=== PATIENT | female | born 2000 | race Caucasian/White ===

== ENCOUNTER 2023-12-20 13:36 | Emergency (ER) | payer OTHER ==
--- NOTE | 2023-12-20 17:11 | ER ---
Nurse's Notes [facility] Name: Alma Rosa Smith Age: 23 yrs Sex: Female : 2000 Arrival Date: 12/20/2023 Time: 13:36 Bed IW7 Private MD: Diagnosis: Candidiasis, unspecified Presentation: 12/19 13:59 Chief complaint: Patient states: Rash under breasts since yesterday. Coronavirus [facility] screen: Coronavirus screen: Vaccine status: Patient reports being unvaccinated. Ebola Screen: Patient denies travel to an Ebola-affected area in the 21 days before illness onset. Initial Sepsis Screen: Does the patient meet any 2 criteria? No. Patient's initial sepsis screen is negative. Does the patient have a suspected source of infection? No. Patient's initial sepsis screen is negative. Risk Assessment: Do you want to hurt yourself or someone else? Patient reports no desire to harm self or others. Onset of symptoms was December 19, 2023. 13:59 Method Of Arrival: Ambulatory [facility] 13:59 Acuity: FERMIN [address] [facility] Triage Assessment: 14:04 General: Appears in no apparent distress. comfortable, Behavior is calm, cooperative, nj1 appropriate for age. Pain: Denies pain. Neuro: Level of Consciousness is awake, alert, obeys commands, Oriented to person, place, time, situation. Cardiovascular: Patient's skin is warm and dry. Respiratory: Airway is patent Respiratory effort is even, unlabored. Historical: - Allergies: 14:03 No Known Allergies; nj1 - PMHx: 14:03 None; nj1 - PSHx: 14:03 Tonsillectomy; nj1 - Immunization history:: Client reports having NOT received the Covid vaccine. - Infectious Disease History:: Denies. - Social history:: Smoking status: Patient denies any tobacco usage or history of. Screenin:05 [facility] ED Fall Risk Assessment (Adult) History of falling in the last 3 months, nj including since admission No falls in past 3 months (0 pts) Confusion or Disorientation No (0 pts) Intoxicated or Sedated No (0 pts) Impaired Gait No (0 pts) Mobility Assist Device Used No (0 pt) Altered Elimination No (0 pt) Score/Fall Risk Level 0 - 2 = Low Risk Oriented to surroundings, Maintained a safe environment, Hourly rounding (assess needs \T\ fall precautionary measures) done. Abuse screen: Denies threats or abuse. Denies injuries from another. Nutritional screening: No deficits noted. Tuberculosis screening: No symptoms or risk factors identified. Vital Signs: 13:59 BP 159 / 100; Pulse 82; Resp 18; Temp 97.1(TE); Pulse Ox 98% ; Weight 124.74 kg; Height nj 5 ft. 3 in. ; 13:59 Body Mass Index 48.71 (124.74 kg, 160.02 cm) [facility] ED Course: 13:41 Patient arrived in ED. im 13:41 [facility] Cro[facility] kb 13:41 Kishore Dueñas MD is Attending Physician. kb 14:02 Triage completed. nj 14:04 Arm band placed on right wrist. nj 14:06 Patient has correct armband on for positive identification. Provided Education on: [facility] discharge instructions. 14:06 No provider procedures requiring assistance completed. Patient did not have IV access nj during this emergency room visit. Administered Medications: No medications were administered Medication: 14:07 VIS not applicable for this client. [facility] Outcome: 14:04 Discharge ordered by . kb 14:08 Discharged to home ambulatory, [facility] 14:08 Condition: stable 14:08 Discharge instructions given to patient, Instructed on discharge instructions, follow up and referral plans. medication usage, wound care, Demonstrated understanding of instructions, follow-up care, medications, wound care, Prescriptions given X 1, 14:08 Patient left the ED. [facility] Signatures: Lida Crooks FNP-C FNP-Ckb Jaco, Norma, RN RN [facility] Perri Anderson Corrections: (The following items were deleted from the chart) 14:04 13:59 Chief complaint: Patient states: Rash under breasts. [place] [id number] 14:04 13:59 Coronavirus screen: [place] [id number] 14:04 13:59 Initial Sepsis Screen: Does the patient meet any 2 criteria? No. Patient's [facility] initial sepsis screen is negative. Does the patient have a suspected source of infection? No. Patient's initial sepsis screen is negative. [facility]
--- NOTE | 2023-12-20 17:11 | EDPHYS ---
Physician Documentation [facility] Name: Alma Rosa Smith Age: 23 yrs Sex: Female : 2000 Arrival Date: 12/20/2023 Time: 13:36 Bed IW7 Private MD: ED Physician Kishore Dueñas HPI: 12/19 14:02 This 23 yrs old Female presents to ER via Unassigned with complaints of Rash. kb 14:02 Pt is a 23 year old female who presents for rash beneath bilateral breasts that started kb yesterday. States she has had this intermittently for the past few years. Reports itching. States the rash presents more often during the summer. . Historical: - Allergies: 14:03 No Known Allergies; nj1 - PMHx: 14:03 None; nj1 - PSHx: 14:03 Tonsillectomy; nj1 - Immunization history:: Client reports having NOT received the Covid vaccine. - Infectious Disease History:: Denies. - Social history:: Smoking status: Patient denies any tobacco usage or history of. ROS: 14:02 Constitutional: As per HPI kb Exam: 14:02 Constitutional: This is a well developed, well nourished patient who is awake, alert, kb and in no acute distress. Head/Face: Normocephalic, atraumatic. ENT: Moist Mucous membranes Cardiovascular: Regular rate Respiratory: Respirations even and unlabored. No increased work of breathing. Talking in full sentences Abdomen/GI: Soft, non-tender. No distention MS/ Extremity: Pulses equal, no cyanosis. Neurovascular intact. Full, normal range of motion. Neuro: Awake and alert, GCS 15, oriented to person, place, time, and situation. Moves all extremities. Normal gait. 14:02 Skin: rash a moderate rash is noted, consistent with candidiasis , Vital Signs: 13:59 BP 159 / 100; Pulse 82; Resp 18; Temp 97.1(TE); Pulse Ox 98% ; Weight 124.74 kg; Height nj1 5 ft. 3 in. ; 13:59 Body Mass Index 48.71 (124.74 kg, 160.02 cm) nj1 MDM: 13:41 Patient medically screened. kb 14:03 Differential diagnosis: allergic reaction, parasite infection, candidiasis, ezcema. kb Data reviewed: vital signs, nurses notes. Counseling: I had a detailed discussion with the patient and/or guardian regarding the historical points, exam findings, and any diagnostic results supporting the discharge/admit diagnosis, the need for outpatient follow up, a facilities specialist, to return to the emergency department if symptoms worsen or persist or if there are any questions or concerns that arise at home. Administered Medications: No medications were administered Disposition Summary: 12/20/23 14:04 Discharge Ordered Notes: Location: Home kb Condition: Stable kb Diagnosis - Candidiasis, unspecified kb Followup: kb - With: Emergency Department - When: As needed - Reason: Worsening of condition Followup: kb - With: Private Physician - When: 2 - 3 days - Reason: Recheck today's complaints, Continuance of care, Re-evaluation by your physician Discharge Instructions: - Discharge Summary Sheet kb - Skin Yeast Infection kb Forms: - Medication Reconciliation Form kb - Antibiotic Education kb - Prescription Opioid Use kb - Patient Portal Instructions kb - Leadership Thank You Letter kb Prescriptions: - Nystatin-Triamcinolone 100,000-0.1 unit/g-% Topical cream - apply 1 application TOPICAL route 2 times per day; 1 unit; Refills: 0, Product kb Selection Permitted Signatures: Lida Crooks, [employer]ARING [employer]ISHER-C [employer]ING [employer]ISHER-Yu Hallman, RN RN nj1
[2023-12-21 02:40] VITALS: BP 159/100; TEMP 97.1; O2SAT 98
== END 2023-12-20 14:08 | disposition home or self-care (01) ==
LOC: ER 13:36
DX: B37.9 Candidiasis, unspecified (principal)

== ENCOUNTER 2024-02-29 12:21 | Emergency (ER) | payer OTHER ==
[2024-02-29 13:13] LABS: Absolute Basophils 0.1 K/uL (0-0.5); Absolute Eosinophils 0.2 K/uL (0-0.5); Absolute Lymphocytes (CBC) 1.9 K/uL (0.7-4.9); Absolute Monocytes 0.5 K/uL (0.1-1.3); Absolute Neutrophil 8.8 K/uL (1.8-8.0); Basophils % 0.5 % (0-1.3); Eosinophils % 1.5 % (0-4.4); Hematocrit 41.8 % (36.0-45.0); Hemoglobin 13.4 g/dL (12.0-15.0); Lymphocytes % 16.8 % (15.3-44.8); MCH 27.4 pg (27.0-35.0); MCHC 32.2 g/dL (32.0-36.0); MCV 85.1 fL (80-100); Monocytes % 4.2 % (3.3-12.3); Platelets 407 thou/uL (152-406); RBC Red Blood Cell Count 4.91 M/uL (3.86-4.86); Red Cell Distribution Width 17.1 % (12.1-15.2)
[2024-02-29 13:29] LABS: Specific Gravity 1.023 (1.005-1.030); Urine Bacteria <20 /HPF (<20); Urine Bilirubin NEGATIVE (Negative); Urine Blood 3+ (Negative); Urine Clarity Extremely Turbid (Clear); Urine Color Light-Yellow (Yellow); Urine Culture Reflex Order NOT NEEDED; Urine Glucose NEGATIVE (Negative); Urine Ketones 1+ (Negative); Urine Microscopic Reflex YN ORDER UMIC; Urine Mucus Slight /HPF (None Seen); Urine Nitrite NEGATIVE (Negative); Urine Protein NEGATIVE (Negative); Urine Urobilinogen Normal (Normal); Urine WBC <5 /HPF (<5); Urine pH 5.5 (5.0-7.0)
[2024-02-29 13:39] LABS: Albumin 3.4 g/dL (3.4-5.0); Albumin/Globulin Ratio 0.7 (1.1-1.8); Anion Gap 9.2 mEq/L (5.0-15.0); Bilirubin Total 0.3 mg/dL (0.2-1.0); Globulin 4.6 g/dL (2.3-3.5); Potassium 3.2 mEq/L (3.5-5.1); Thyroid Stimulating Hormone 1.36 uIU/mL (0.358-3.740)
[2024-02-29] MEDS ORDERED: NA CHLORIDE 0.9% 1,000 ML ONE (13:52)
--- NOTE | 2024-02-29 14:14 | RAD REPORT ---
EXAMINATION: US BILATERAL LOWER EXTREMITY VENOUS DOPPLER CLINICAL INDICATION: PAIN TECHNIQUE: Complete bilateral duplex sonography of the BILATERAL lower extremity veins was performed. The examination included compression for vein patency, color Doppler imaging and flow augmentation in response to distal compression of the distal external iliac, common femoral, femoral, popliteal, t ibial, and great and small saphenous veins. COMPARISON: No prior exam. FINDINGS: Duplex sonography testing of the veins of the BILATERAL lower extremity was performed. Color flow poly ging shows all veins to be compressible with [id number] color filling. Pulsatile and phasic flow is present within all lower extremity deep and superficial veins examined. IMPRESSION: There is no deep vein or superficial vein thrombosis.
[2024-02-29] MEDS ORDERED: CEFTRIAXONE 1000 MG/VIAL ONE (14:39)
[2024-02-29] MEDS ORDERED: CEFDINIR 300 MG CAP PO ONE (14:39)
[2024-02-29] MEDS ORDERED: POTASSIUM 25 MEQ EFFERV TAB ONE (14:40)
--- NOTE | 2024-02-29 14:41 | ER ---
Nurse's Notes [facility] Name: Alma Rosa Smith Age: 23 yrs Sex: Female : 2000 Arrival Date: 02/29/2024 Time: 12:21 Bed 25 Private MD: Diagnosis: Palpitations;Less than 8 weeks gestation of ;UTI/ Urinary tract infection, site not specified;Hypokalemia Presentation: 02/28 12:38 Chief complaint: Patient states: SOB and palpitations started last night. About 7 weeks ll1 . G3, P1. Coronavirus screen: Client denies travel out of the [place] in the last 14 days. At this time, the client does not indicate any symptoms associated with coronavirus-19. Ebola Screen: Patient denies travel to an Ebola-affected area in the 21 days before illness onset. Initial Sepsis Screen: Does the patient meet any 2 criteria? No. Patient's initial sepsis screen is negative. Does the patient have a suspected source of infection? No. Patient's initial sepsis screen is negative. Risk Assessment: Do you want to hurt yourself or someone else? Patient reports no desire to harm self or others. Onset of symptoms was February 28, 2024. 12:38 Method Of Arrival: Ambulatory ll1 12:38 Acuity: FERMIN 3 ll1 Triage Assessment: 12:38 General: Appears in no apparent distress. Behavior is calm, cooperative, appropriate ll1 for age. Cardiovascular: Reports palpitations, shortness of breath. Respiratory: Reports shortness of breath. 15:21 General: Appears in no apparent distress. Respiratory: Onset: The symptoms/episode tl4 began/occurred gradually, the patient has mild shortness of breath. 15:22 General: Behavior is calm, cooperative. Respiratory: Reports shortness of breath Airway tl4 is patent Respiratory effort is even, unlabored, Respiratory pattern is regular, symmetrical. CARDIAC SPECIALIST: 15:21 Verified tl4 Historical: - Allergies: 12:39 No Known Allergies; ll1 - PMHx: 12:39 None; ll1 - PSHx: 12:26 Tonsillectomy; ll1 - Immunization history:: Adult Immunizations up to date. - Infectious Disease History:: Denies. - Social history:: Smoking status: Patient denies any tobacco usage or history of. Screenin:06 [facility] ED Fall Risk Assessment (Adult) History of falling in the last 3 months, tl4 including since admission No falls in past 3 months (0 pts) Confusion or Disorientation No (0 pts) Intoxicated or Sedated No (0 pts) Impaired Gait No (0 pts) Mobility Assist Device Used No (0 pt) Altered Elimination No (0 pt) Score/Fall Risk Level 0 - 2 = Low Risk Oriented to surroundings, Maintained a safe environment, Educated pt \T\ family on fall prevention, incl call for assistance when getting out of bed, Assessed \T\ reinforced patient's understanding of fall precautions. Abuse screen: Denies threats or abuse. Denies injuries from another. Nutritional screening: No deficits noted. Tuberculosis screening: No symptoms or risk factors identified. Assessment: 13:09 General: Appears in no apparent distress. Behavior is calm, cooperative. Pain: Denies tl4 pain. Neuro: Level of Consciousness is awake, alert, obeys commands, Oriented to person, place, time, situation, Moves all extremities. Full function Gait is steady, Speech is normal. Cardiovascular: Denies chest pain, diaphoresis, lightheadedness, palpitations, syncope, Capillary refill < 3 seconds Patient's skin is warm and dry. Rhythm is sinus rhythm. Respiratory: Reports shortness of breath Airway is patent Respiratory effort is even, unlabored, Respiratory pattern is regular, symmetrical, Breath sounds are clear bilaterally. GI: No deficits noted. No signs and/or symptoms were reported involving the gastrointestinal system. : No deficits noted. No signs and/or symptoms were reported regarding the genitourinary system. EENT: No deficits noted. No signs and/or symptoms were reported regarding the EENT system. Derm: No deficits noted. No signs and/or symptoms reported regarding the dermatologic system. Musculoskeletal: No deficits noted. No signs and/or symptoms reported regarding the musculoskeletal system. Vital Signs: 12:38 BP 147 / 87; Pulse 89; Resp 18; Temp 97; Pulse Ox 100% ; Weight 142.88 kg; Height 5 ft. ll1 4 in. ; Pain 0/10; 13:08 BP 142 / 87; Pulse 78; Resp 18; Pulse Ox 98% on R/A; tl4 14:05 BP 115 / 90; Pulse 83; Resp 18; Pulse Ox 100% on R/A; tl4 15:07 BP 128 / 68; Pulse 83; Resp 18; Temp 97.6(O); Pulse Ox 99% ; Pain 0/10; tl4 12:38 Body Mass Index 54.07 (142.88 kg, 162.56 cm) ll1 12:38 Pain Scale: Adult ll1 15:07 Pain Scale: Adult tl4 [place] Coma Score: 14:32 Eye Response: spontaneous(4). Motor Response: obeys commands(6). Verbal Response: angely oriented(5). Total: 15. ED Course: 12:24 Patient arrived in ED. ra3 12:26 Arm band placed on Patient placed in an exam room, on a stretcher. ll1 12:29 Kishore Dueñas MD is Attending Physician. angely 12:30 EKG completed in triage. Results shown to MD. ll1 12:39 Triage completed. ll1 12:51 Kameron Saldaña, JENNIFER is Primary Nurse. tl4 13:03 TSH Sent. tl4 13:03 Comprehensive Metabolic Panel Sent. tl4 13:03 CBC with Diff Sent. tl4 13:06 Initial lab(s) drawn, by me, sent to lab. Inserted saline lock: 22 gauge in left tl4 antecubital area, using aseptic technique. Blood collected. Flushed with 10 mL NS. 13:07 Patient has correct armband on for positive identification. Placed in gown. Bed in low tl4 position. Call light in reach. Side rails up X 1. Provided Education on: ed process, call mujica. Client placed on continuous cardiac and pulse oximetry monitoring. NIBP monitoring applied. Door closed. Noise minimized. Lights dimmed. Moved to private room. Warm blanket given. 13:09 Urinalysis w/ reflexes Sent. tl4 13:09 Urine collected: clean catch specimen. tl4 13:47 US Extremity Venous W Compression Kye In Process Unspecified. EDMS 15:09 No provider procedures requiring assistance completed. IV discontinued, intact, tl4 bleeding controlled, No redness/swelling at site. Pressure dressing applied. Administered Medications: 13:52 Drug: NS 0.9% IV 1000 ml IV at 1000 ml once; to be given as a bolus over 60 minutes tl4 Route: IV; Rate: 1000 ml; Site: left antecubital; Delivery: Primary tubing; 15:07 Follow up: Response: No adverse reaction; IV Status: Completed infusion; IV Intake: tl4 1000ml 15:07 Drug: Potassium PO Effervescent Tablet 25 mEq PO once; dissolve in 4 ounces of water or tl4 juice Route: PO; 15:23 Follow up: Response: No adverse reaction tl4 15:07 Drug: Rocephin IV 1 grams IV at per protocol once; Given slow IV push per pharmacy tl4 instructions Route: IV; Rate: per protocol; Site: left antecubital; 15:22 Follow up: Response: No adverse reaction; IV Status: Completed infusion tl4 15:07 Drug: Cefdinir PO 300 mg PO once Route: PO; tl4 15:22 Follow up: Response: No adverse reaction tl4 Medication: 13:06 VIS not applicable for this client. tl4 Intake: 15:07 IV: 1000ml; Total: 1000ml. tl4 Outcome: 14:41 Discharge ordered by . angely 15:10 Discharged to home ambulatory, with family, tl4 15:10 Condition: stable 15:10 Discharge instructions given to patient, Instructed on discharge instructions, follow up and referral plans. medication usage, Demonstrated understanding of instructions, follow-up care, medications, Prescriptions given X 1, 15:22 Patient left the ED. tl4 Signatures: Dispatcher [employer] EDMS Kishore Dueñas MD MD cha Lewis, Lynsay RN RN ll1 Kameron Saldaña RN RN tl4 Kirsten Maier ra3 Corrections: (The following items were deleted from the chart) 12:39 12:38 Chief complaint: Patient states: SOB and palpitations started last night ll1 ll1
--- NOTE | 2024-02-29 14:41 | EDPHYS ---
Physician Documentation [facility] Name: Alma Rosa Smith Age: 23 yrs Sex: Female : 2000 Arrival Date: 02/29/2024 Time: 12:21 Bed 25 Private MD: ED Physician Kishore Dueñas HPI: 02/28 14:31 This 23 yrs old Female presents to ER via Ambulatory with complaints of 7wks angely preg Heart palpitations, Shortness Of Breath. 14:31 The patient has shortness of breath at rest. Onset: The symptoms/episode began/occurred angely today. 14:31 Duration: The symptoms are intermittent, with no pattern. The patient's shortness of angely breath has no apparent modifying factors. The patient presents with a history of irregular heart beat, heart racing, heart skipping beats. Context: The symptoms occur without known cause. Modifying factors: The symptoms are aggravated by nothing. The symptoms are alleviated by nothing. Severity of symptoms: At their worst the symptoms were mild in the emergency department the symptoms are unchanged. The patient has not experienced similar symptoms in the past. 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 - Infectious Disease History:: Denies. - Social history:: Smoking status: Patient denies any tobacco usage or history of. ROS: 14:32 Constitutional: Negative for fever, chills, and weight loss, Eyes: Negative for injury, angely pain, redness, and discharge, ENT: Negative for injury, pain, and discharge, Neck: Negative for injury, pain, and swelling, Respiratory: Negative for shortness of breath, cough, wheezing, and pleuritic chest pain, Abdomen/GI: Negative for abdominal pain, nausea, vomiting, diarrhea, and constipation, Back: Negative for injury and pain, : Negative for injury, bleeding, discharge, and swelling, MS/Extremity: Negative for injury and deformity, Skin: Negative for injury, rash, and discoloration, Neuro: Negative for headache, weakness, numbness, tingling, and seizure, Psych: Negative for depression, anxiety, suicide ideation, homicidal ideation, and hallucinations, Allergy/Immunology: Negative for hives, rash, and allergies, Endocrine: Negative for neck swelling, polydipsia, polyuria, polyphagia, and marked weight changes, Hematologic/Lymphatic: Negative for swollen nodes, abnormal bleeding, and unusual bruising, 14:32 Cardiovascular: Positive for palpitations, 14:32 Respiratory: Positive for shortness of breath, Exam: 14:32 Constitutional: This is a well developed, well nourished patient who is awake, alert, angely and in no acute distress. Head/Face: Normocephalic, atraumatic. Eyes: Pupils equal round and reactive to light, extra-ocular motions intact. Lids and lashes normal. Conjunctiva and sclera are non-icteric and not injected. Cornea within normal limits. Periorbital areas with no swelling, redness, or edema. ENT: Nares patent. No nasal discharge, no septal abnormalities noted. Tympanic membranes are normal and external auditory canals are clear. Oropharynx with no redness, swelling, or masses, exudates, or evidence of obstruction, uvula midline. Mucous membranes moist. Neck: Trachea midline, no thyromegaly or masses palpated, and no cervical lymphadenopathy. Supple, full range of motion without nuchal rigidity, or vertebral point tenderness. No Meningismus. Chest/axilla: Normal chest wall appearance and motion. Nontender with no deformity. No lesions are appreciated. Cardiovascular: Regular rate and rhythm with a normal S1 and S2. No gallops, murmurs, or rubs. Normal PMI, no JVD. No pulse deficits. Respiratory: Lungs have equal breath sounds bilaterally, clear to auscultation and percussion. No rales, rhonchi or wheezes noted. No increased work of breathing, no retractions or nasal flaring. Abdomen/GI: Soft, non-tender, with normal bowel sounds. No distension or tympany. No guarding or rebound. No evidence of tenderness throughout. Back: No spinal tenderness. No costovertebral tenderness. Full range of motion. Skin: Warm, dry with normal turgor. Normal color with no rashes, no lesions, and no evidence of cellulitis. MS/ Extremity: Pulses equal, no cyanosis. Neurovascular intact. Full, normal range of motion. Neuro: Awake and alert, GCS 15, oriented to person, place, time, and situation. Cranial nerves II-XII grossly intact. Motor strength 5/5 in all extremities. Sensory grossly intact. Cerebellar exam normal. Normal gait. Psych: Awake, alert, with orientation to person, place and time. Behavior, mood, and affect are within normal limits. 14:32 ECG was reviewed by the Attending Physician. 14:32 Musculoskeletal/extremity: DVT Exam: No signs of deep vein thrombosis. no pain, no swelling, no tenderness, negative Homans' sign noted on exam, no appreciated bluish discoloration, no erythema, no increased warmth, Vital Signs: 12:38 BP 147 / 87; Pulse 89; Resp 18; Temp 97; Pulse Ox 100% ; Weight 142.88 kg; Height 5 ft. ll1 4 in. ; Pain 0/10; 13:08 BP 142 / 87; Pulse 78; Resp 18; Pulse Ox 98% on R/A; tl4 14:05 BP 115 / 90; Pulse 83; Resp 18; Pulse Ox 100% on R/A; tl4 15:07 BP 128 / 68; Pulse 83; Resp 18; Temp 97.6(O); Pulse Ox 99% ; Pain 0/10; tl4 12:38 Body Mass Index 54.07 (142.88 kg, 162.56 cm) ll1 12:38 Pain Scale: Adult ll1 15:07 Pain Scale: Adult tl4 Raul Coma Score: 14:32 Eye Response: spontaneous(4). Motor Response: obeys commands(6). Verbal Response: angely oriented(5). Total: 15. MDM: 12:29 Medical Screening Exam initiated angely 15:13 Differential diagnosis: Anxiety Reaction CHF exacerbation, pulmonary edema, Pulmonary angely Embolism reactive airway disease, Unstable Angina. Antibiotic administration: The patient is discharged and will get outpatient antibiotics. Immunization status:. Data reviewed: vital signs, nurses notes, lab test result(s), EKG. Consideration of Admission/Observation Escalation of care including admission/observation considered. I considered the following discharge prescriptions or medication management in the emergency department Medications were administered in the Emergency Department. See MAR. Test considered but Not performed: X-ray: PT REFUSED CXR, CT SCAN. 02/28 12:47 Order name: CBC with Diff; Complete Time: 14:29 [facility] 02/28 12:47 Order name: Comprehensive Metabolic Panel; Complete Time: 14:29 [facility] 02/28 12:47 Order name: TSH; Complete Time: 14:29 [facility] 02/28 12:47 Order name: Urinalysis w/ reflexes; Complete Time: 14:29 [facility] 02/28 12:47 Order name: US Extremity Venous W Compression Kye; Complete Time: 14:29 [facility] 02/28 12:47 Order name: EKG; Complete Time: 12:47 [facility] 02/28 12:47 Order name: EKG - Nurse/Tech; Complete Time: 13:09 [facility] EC:32 Rate is 85 beats/min. Rhythm is regular. QRS [place] is Normal. MI interval is normal. QRS angely interval is normal. QT interval is normal. No Q waves. T waves are Normal. No ST changes noted. Clinical impression: NSR w/ Non-specific ST/T Changes and No evidence of ischemia. Interpreted by me. Reviewed by me. Administered Medications: 13:52 Drug: NS 0.9% IV 1000 ml IV at 1000 ml once; to be given as a bolus over 60 minutes tl4 Route: IV; Rate: 1000 ml; Site: left antecubital; Delivery: Primary tubing; 15:07 Follow up: Response: No adverse reaction; IV Status: Completed infusion; IV Intake: tl4 1000ml 15:07 Drug: Potassium PO Effervescent Tablet 25 mEq PO once; dissolve in 4 ounces of water or tl4 juice Route: PO; 15:23 Follow up: Response: No adverse reaction tl4 15:07 Drug: Rocephin IV 1 grams IV at per protocol once; Given slow IV push per pharmacy tl4 instructions Route: IV; Rate: per protocol; Site: left antecubital; 15:22 Follow up: Response: No adverse reaction; IV Status: Completed infusion tl4 15:07 Drug: Cefdinir PO 300 mg PO once Route: PO; tl4 15:22 Follow up: Response: No adverse reaction tl4 Disposition Summary: 02/29/24 14:41 Discharge Ordered Notes: Location: Home angely Problem: new angely Symptoms: have improved angely Condition: Stable angely Diagnosis - Palpitations angely - Less than 8 weeks gestation of angely - UTI/ Urinary tract infection, site not specified angely - Hypokalemia angely Followup: angely - With: Private Physician - When: 2 - 3 days - Reason: Recheck today's complaints, Continuance of care, Re-evaluation by your physician Discharge Instructions: - Discharge Summary Sheet angely - Potassium Content of Foods angely - Palpitations angely - Care angely - Urinary Tract Infection, Adult angely - First Trimester of , [id number] angely - Urinary Tract Infection, Adult, Vezc-sh-Xrua angely - First Trimester of angely - Palpitations, Ztfk-ey-Clag angely - Hypokalemia angely Forms: - Medication Reconciliation Form angely - Antibiotic Education angely - Prescription Opioid Use angely - Patient Portal Instructions angely - Leadership Thank You Letter angely Prescriptions: - cefdinir 300 mg Oral capsule - take 1 capsule ORAL route 2 times per day for 5 days; 10 capsule; Refills: 0, angely Product Selection Permitted Signatures: Dispatcher [employer] EDMS Kishore Dueñas MD MD cha Lewis, Lynsay RN RN ll1 Kameron Saldaña RN RN tl4 Corrections: (The following items were deleted from the chart) 12:59 12:47 Chest Single View+RAD.RAD.BRZ ordered. EDMS EDMS
[2024-02-29 17:10] VITALS: BP 128/68; TEMP 97.6; O2SAT 99
--- NOTE | 2024-03-01 11:52 | EKG ---
Test Date: 2024-02-29 Test Time: 12:36:31 Gold Stamper: LML MEASUREMENT RESULTS: Intervals: Rate: 85 SD: 146 QRSD: 100 QT: 358 QTc: 426 [place]: P: 22 SD: 146 QRS: 50 T: 31 INTERPRETIVE STATEMENTS: Normal sinus rhythm Normal ECG No previous ECG available for comparison Electronically Signed On 03-01-24 11:50:50 CDT by Neftali Jeter
== END 2024-02-29 15:22 | disposition home or self-care (01) ==
LOC: ER 12:21
DX: O23.41 Unspecified infection of urinary tract in pregnancy, first trimester (principal); N39.0 Urinary tract infection, site not specified; O99.281 Endocrine, nutritional and metabolic diseases complicating pregnancy, first trimester; E87.6 Hypokalemia; Z3A.01 Less than 8 weeks gestation of pregnancy
CPT/HCPCS: 85025; 81001; 36415; 84443; 80053; 93970; J7030; J0696; 93005; 96361; 96374; 99285

== ENCOUNTER 2024-03-11 13:45 | Emergency (ER) | payer OTHER ==
[2024-03-11] MEDS ORDERED: ACETAMINOPHEN 325 MG TABLET ONE (14:46)
[2024-03-11 15:27] LABS: SARS-CoV-2 Antigen CONTROL BLUE LINE VIS/BG OK
[2024-03-11 15:28] LABS: SARS-CoV-2 Antigen Rapid Res Positive (Negative)
--- NOTE | 2024-03-11 15:32 | ER ---
Nurse's Notes [facility] Name: Alma Rosa Smith Age: 23 yrs Sex: Female : 2000 Arrival Date: 03/11/2024 Time: 13:45 Bed 11 Private MD: Diagnosis: Acute upper respiratory infection, unspecified;Acute serous otitis media, left ear Presentation: 03/11 14:09 Chief complaint: Patient states: she has been having cough, congestion for approx 2 ap3 days. patient states her daughter has been sick as well. Coronavirus screen: Client presents with at least one sign or symptom that may indicate coronavirus-19. Ebola Screen: No symptoms or risks identified at this time. Initial Sepsis Screen: Does the patient meet any 2 criteria? No. Patient's initial sepsis screen is negative. Does the patient have a suspected source of infection? No. Patient's initial sepsis screen is negative. Risk Assessment: Do you want to hurt yourself or someone else? Patient reports no desire to harm self or others. Onset of symptoms was March 09, 2024. 14:09 Method Of Arrival: Ambulatory ap3 14:09 Acuity: FERMIN 4 ap3 Triage Assessment: 14:11 General: Appears ill, Behavior is calm, cooperative, appropriate for age. Pain: ap3 Complains of pain in body aches. EENT: Reports nasal congestion. Neuro: Level of Consciousness is awake, alert, obeys commands, Oriented to person, place, time, situation. Cardiovascular: Patient's skin is warm and dry. Respiratory: Reports cough that is Airway is patent Respiratory effort is even, unlabored, Respiratory pattern is regular, symmetrical. 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 - Infectious Disease History:: Denies. - Social history:: Smoking status: unknown. Screenin:11 [facility] ED Fall Risk Assessment (Adult) History of falling in the last 3 months, ap3 including since admission No falls in past 3 months (0 pts) Confusion or Disorientation No (0 pts) Intoxicated or Sedated No (0 pts) Impaired Gait No (0 pts) Mobility Assist Device Used No (0 pt) Altered Elimination No (0 pt) Score/Fall Risk Level 0 - 2 = Low Risk Oriented to surroundings, Maintained a safe environment, Educated pt \T\ family on fall prevention, incl call for assistance when getting out of bed, Assessed \T\ reinforced patient's understanding of fall precautions, Hourly rounding (assess needs \T\ fall precautionary measures) done, Used ambulatory aids as needed (educated on \T\ assisted with), Used gait belt as appropriate. Abuse screen: Denies threats or abuse. Nutritional screening: No deficits noted. Tuberculosis screening: No symptoms or risk factors identified. Assessment: 15:06 Reassessment: Patient and/or family updated on plan of care and expected duration. Pain ap3 level reassessed. Patient is alert, oriented x 3, equal unlabored respirations, skin warm/dry/pink. Vital Signs: 14:09 BP 147 / 53; Pulse 87; Resp 19; Temp 98.2; Pulse Ox 98% on R/A; Weight 141.52 kg; ap3 Height 5 ft. 4 in. ; 15:52 BP 100 / 63; Pulse 86; Resp 18; Temp 98.3; Pulse Ox 100% ; ap3 14:09 Body Mass Index 53.55 (141.52 kg, 162.56 cm) ap3 ED Course: 13:47 Patient arrived in ED. mr 13:53 Thomas Sen, SUPERVISOR CONTINGENTS-[facility] 13:53 Erik Hdz MD is Attending Physician. dr5 14:10 Triage completed. ap3 14:12 Arm band placed on right wrist. ap3 14:12 Patient has correct armband on for positive identification. Call light in reach. Side ap3 rails up X 1. Provided Education on: call light education. Pulse ox on. NIBP on. 14:54 COVID swab sent to lab. Flu and/or RSV swab sent to lab. ap3 15:06 Toshia Resendiz, JENNIFER is Primary Nurse. ap3 15:30 Notified ED physician of a critical lab result(s). COVID+ Notified Nurse Practitioner hb and/or Physician Siebel Architect of. 15:53 No provider procedures requiring assistance completed. Patient did not have IV access ap3 during this emergency room visit. Administered Medications: 14:54 Drug: Acetaminophen PO 650 mg PO once Route: PO; ap3 15:53 Follow up: Response: No adverse reaction ap3 Medication: 14:12 VIS not applicable for this client. ap3 Outcome: 15:32 Discharge ordered by . dr5 15:53 Discharged to home ambulatory, ap3 15:53 Condition: good 15:53 Discharge instructions given to patient, Instructed on discharge instructions, follow up and referral plans. Demonstrated understanding of instructions, follow-up care, 15:53 Patient left the ED. ap3 Signatures: Maria Victoria Lawrence, Reg Reg mr Eleanor Blanco, RN RN Toshia Hooper RN RN ap3 Thomas Sen, SUPERVISOR CONTINGENTS-C SUPERVISOR CONTINGENTS-Cdr5
--- NOTE | 2024-03-11 15:32 | EDPHYS ---
Physician Documentation [facility] Name: Alma Rosa Smith Age: 23 yrs Sex: Female : 2000 Arrival Date: 03/11/2024 Time: 13:45 Bed 11 Private MD: ED Physician Erik Hdz HPI: 03/11 17:02 This 23 yrs old Female presents to ER via Ambulatory with complaints of Flu dr5 Symptoms, 6wks . 17:03 Onset: The symptoms/episode began/occurred 2 day(s) ago. Associated signs and symptoms: dr5 Pertinent positives: congestion, cough, earache. Pt is a 23 year old female approximately 7 weeks with cough, congestion, and subjective fevers at home. Pt has been taking Tylenol for symptoms with mild relief. 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 - Infectious Disease History:: Denies. - Social history:: Smoking status: unknown. ROS: 17:03 Constitutional: as per hpi dr5 Exam: 17:03 Constitutional: This is a well developed, well nourished patient who is awake, alert, dr5 and in no acute distress. Head/Face: Normocephalic, atraumatic. Neck: Trachea midline, no thyromegaly or masses palpated, and no cervical lymphadenopathy. Supple, full range of motion without nuchal rigidity, or vertebral point tenderness. No Meningismus. Chest/axilla: Normal chest wall appearance and motion. Nontender with no deformity. No lesions are appreciated. 17:03 Respiratory: mild respiratory distress is noted, Respirations: normal, no acute changes, Breath sounds: are clear throughout, 17:03 Neuro: Exam negative for acute changes, Vital Signs: 14:09 BP 147 / 53; Pulse 87; Resp 19; Temp 98.2; Pulse Ox 98% on R/A; Weight 141.52 kg; ap3 Height 5 ft. 4 in. ; 15:52 BP 100 / 63; Pulse 86; Resp 18; Temp 98.3; Pulse Ox 100% ; ap3 14:09 Body Mass Index 53.55 (141.52 kg, 162.56 cm) ap3 MDM: 13:54 Medical Screening Exam initiated dr5 17:03 Differential diagnosis: viral Infection, URI, COVID-19, Influenza. Data reviewed: vital dr5 signs, nurses notes. I considered the following discharge prescriptions or medication management in the emergency department Medications were administered in the Emergency Department. See MAR. Care significantly affected by the following Social Determinants of Health: Poor access to healthcare and/or lack of insurance, Poor access to transportation. Counseling: I had a detailed discussion with the patient and/or guardian regarding the historical points, exam findings, and any diagnostic results supporting the discharge/admit diagnosis, lab results, the need for outpatient follow up, for definitive care, a family practitioner, an OB/Gyne specialist, to return to the emergency department if symptoms worsen or persist or if there are any questions or concerns that arise at home. Medication response: Improved pain. ED course: COVID-19 + in ER. Discussed antiviral use and joint decision made to not start them due to . I printed her out a list of medications that is safe in and recommended to follow up with OBGYN or return if symptoms worsen or she develops shortness of breath or chest pain.. 03/11 14:27 Order name: SARS RAPID; Complete Time: 15:32 dr5 03/11 14:27 Order name: Influenza Screen (a \T\ B); Complete Time: 15:32 dr5 Administered Medications: 14:54 Drug: Acetaminophen PO 650 mg PO once Route: PO; ap3 15:53 Follow up: Response: No adverse reaction ap3 Disposition Summary: 03/11/24 15:32 Discharge Ordered Notes: Location: Home dr5 Condition: Stable dr5 Diagnosis - Acute upper respiratory infection, unspecified dr5 - Acute serous otitis media, left ear dr5 Followup: dr5 - With: Emergency Department - When: As needed - Reason: Worsening of condition Followup: dr5 - With: Private Physician - When: 1 - 2 days - Reason: Recheck today's complaints, Continuance of care, Re-evaluation by your physician Discharge Instructions: - Discharge Summary Sheet dr5 - COVID-19 dr5 Forms: - Work release form ap3 - Medication Reconciliation Form dr5 - Patient Portal Instructions dr5 - Leadership Thank You Letter dr5 Signatures: Toshia Fonseca, JENNIFER RN ap3 Thomas Sen, MUTUEL TELLER-C MUTUEL TELLER-[facility] [place][Note 2]5
[2024-03-11 20:56] VITALS: BP 100/63; TEMP 98.3; O2SAT 100
== END 2024-03-11 15:53 | disposition home or self-care (01) ==
LOC: ER 13:45
DX: J06.9 Acute upper respiratory infection, unspecified (principal); H65.02 Acute serous otitis media, left ear; U07.1 COVID-19
CPT/HCPCS: 36415; 87804; 87811

== ENCOUNTER 2024-03-21 06:04 | Emergency (ER) | payer OTHER ==
--- NOTE | 2024-03-21 06:17 | ER ---
Nurse's Notes [facility] Name: Alma Rosa Smith Age: 23 yrs Sex: Female : 2000 Arrival Date: 03/21/2024 Time: 06:04 Bed 6 Private MD: Diagnosis: Other infective otitis externa, left ear Presentation: 03/21 06:09 Chief complaint: Patient states: pain on the left ear since four days ago. ha1 06:09 Coronavirus screen: Vaccine status: Patient reports being unvaccinated. Ebola Screen: ha1 No symptoms or risks identified at this time. Initial Sepsis Screen: Does the patient meet any 2 criteria? No. Patient's initial sepsis screen is negative. Does the patient have a suspected source of infection? No. Patient's initial sepsis screen is negative. Risk Assessment: Do you want to hurt yourself or someone else? Patient reports no desire to harm self or others. Onset of symptoms was March 21, 2024. 06:09 Method Of Arrival: Ambulatory ha1 06:09 Acuity: FERMIN 4 ha1 Triage Assessment: 06:09 General: Appears uncomfortable, Behavior is cooperative. Pain: Complains of pain in ha1 left ear Pain does not radiate. Pain currently is 9 out of 10 on a pain scale. Quality of pain is described as aching, Pain began 2-3 days ago. Neuro: Level of Consciousness is awake, alert, obeys commands, Oriented to person, place, time, situation. Cardiovascular: Capillary refill < 3 seconds Patient's skin is warm and dry. Respiratory: Airway is patent Respiratory effort is even, unlabored, Respiratory pattern is regular, symmetrical. Musculoskeletal: Circulation, motion, and sensation intact. Range of motion: intact in all extremities. GROUP CIO: 06:27 unknown bm8 Historical: - Allergies: 06:17 No Known Allergies; ha1 - Home Meds: 06:17 Reglan Oral [Active]; progesterone micronized vaginal [Active]; ha1 - PSHx: 06:17 Tonsillectomy; ha1 - Immunization history:: Adult Immunizations up to date. - Infectious Disease History:: Denies. - Social history:: Smoking status: Patient denies any tobacco usage or history of. - Family history:: not pertinent. Screenin:24 [facility] ED Fall Risk Assessment (Adult) History of falling in the last 3 months, bm8 including since admission No falls in past 3 months (0 pts) Confusion or Disorientation No (0 pts) Intoxicated or Sedated No (0 pts) Impaired Gait No (0 pts) Mobility Assist Device Used No (0 pt) Altered Elimination No (0 pt) Score/Fall Risk Level 0 - 2 = Low Risk Oriented to surroundings, Maintained a safe environment, Educated pt \T\ family on fall prevention, incl call for assistance when getting out of bed, Assessed \T\ reinforced patient's understanding of fall precautions, Hourly rounding (assess needs \T\ fall precautionary measures) done, Used ambulatory aids as needed (educated on \T\ assisted with), Used gait belt as appropriate. Abuse screen: Denies threats or abuse. Nutritional screening: No deficits noted. Tuberculosis screening: No symptoms or risk factors identified. Assessment: 06:24 Reassessment: Patient appears in no apparent distress at this time. No changes from bm8 previously documented assessment. Patient and/or family updated on plan of care and expected duration. Pain level reassessed. Patient is alert, oriented x 3, equal unlabored respirations, skin warm/dry/pink. EENT: Ear canal clear on left ear Reports pain in left ear since x4 days. Vital Signs: 06:09 BP 143 / 83; Pulse 84; Resp 17 S; Temp 97.6(T); Pulse Ox 99% on R/A; Weight 145.15 kg; ha1 Height 5 ft. 6 in. ; 06:09 Body Mass Index 51.65 (145.15 kg, 167.64 cm) ha1 Marlin Coma Score: 06:24 Eye Response: spontaneous(4). Motor Response: obeys commands(6). Verbal Response: bm8 oriented(5). Total: 15. 1107 04:29 Eye Response: spontaneous(4). Motor Response: obeys commands(6). Verbal Response: sp4 oriented(5). Total: 15. ED Course: 03/21 06:06 Patient arrived in ED. [email or web address] 06:09 Jason Rodas MD is Attending Physician. sp4 06:17 Triage completed. ha1 06:18 AIDEE WEBSTER, RN is Primary Nurse. dd2 06:24 Patient has correct armband on for positive identification. Call light in reach. Client bm8 placed on continuous cardiac and pulse oximetry monitoring. NIBP monitoring applied. Pulse ox on. NIBP on. Verbal reassurance given. Head of bed. 06:24 No provider procedures requiring assistance completed. Patient did not have IV access bm8 during this emergency room visit. 06:27 Provided Education on: post er care. bm8 06:27 Arm band placed on right wrist. bm8 Administered Medications: 06:24 Drug: Rocephin (cefTRIAXone) IM 1 grams IM once Route: IM; Site: right deltoid; bm8 06:24 Follow up: Response: No adverse reaction; Medication administered at discharge. bm8 06:24 Drug: Acetaminophen PO 1000 mg PO once Route: PO; bm8 06:24 Follow up: Response: No adverse reaction; Medication administered at discharge. bm8 Medication: 06:24 VIS not applicable for this client. bm8 Outcome: 06:17 Discharge ordered by . spRoberto 06:24 Discharged to home ambulatory, bm8 06:24 Condition: stable 06:24 Discharge instructions given to patient, Instructed on discharge instructions, follow up and referral plans. medication usage, safety practices, Demonstrated understanding of instructions, follow-up care, medications, Prescriptions given X 2, 06:27 Patient left the ED. bm8 Signatures: Alicia Peterson jj6 Giuliana Carrington, RN RN ha1 Jason Rodas MD MD sp4 Deon Valera RN RN bm8 AIDEE WEBSTER RN RN dd2
--- NOTE | 2024-03-21 06:17 | EDPHYS ---
Physician Documentation [facility] Name: Alma Rosa Smith Age: 23 yrs Sex: Female : 2000 Arrival Date: 03/21/2024 Time: 06:04 Bed 6 Private MD: ED Physician Jason Rodas HPI: 03/21 06:09 This 23 yrs old Female presents to ER via Unassigned with complaints of Ear sp4 Pain. 03/22 04:28 23-year-old female presents with acute left ear pain.. sp4 04:29 Pain started left ER 4 days ago. Patient is 8 weeks . sp4 [employer]ER: 03/21 06:27 unknown bm8 Historical: - Allergies: 06:17 No Known Allergies; ha1 - Home Meds: 06:17 Reglan Oral [Active]; progesterone micronized vaginal [Active]; ha1 - PSHx: 06:17 Tonsillectomy; ha1 - Immunization history:: Adult Immunizations up to date. - Infectious Disease History:: Denies. - Social history:: Smoking status: Patient denies any tobacco usage or history of. - Family history:: not pertinent. ROS: 03/22 04:28 Constitutional: Negative for fever, chills, and weight loss, positive for acute left sp4 ear pain All other systems are negative, Exam: 04:29 Constitutional: This is a well developed, well nourished patient who is awake, alert, sp4 and in no acute distress. Head/Face: Normocephalic, atraumatic. Eyes: Pupils equal round and reactive to light, extra-ocular motions intact. Lids and lashes normal. Conjunctiva and sclera are not injected. Cornea within normal limits. Periorbital areas with no swelling, redness, or edema. ENT: Nares patent. No nasal discharge, no septal abnormalities noted. Oropharynx with no redness, swelling, or masses, exudates, or evidence of obstruction, uvula midline. Mucous membranes moist. Positive for left ear canal irritation and exudate consistent with acute left otitis externa. Neck: Trachea midline, no thyromegaly or masses palpated, and no cervical lymphadenopathy. Supple, full range of motion without nuchal rigidity, or vertebral point tenderness. Chest/axilla: Normal chest wall appearance and motion. Nontender with no deformity. No lesions are appreciated. Cardiovascular: Regular rate and rhythm with a normal S1 and S2. No gallops, murmurs, or rubs. Normal PMI, no JVD. No pulse deficits. Respiratory: Lungs have equal breath sounds bilaterally, clear to auscultation and percussion. No rales, rhonchi or wheezes noted. No increased work of breathing, no retractions or nasal flaring. Abdomen/GI: Soft, with normal bowel sounds. No distension or tympany. No guarding or rebound. No evidence of tenderness throughout. Back: No spinal tenderness. No costovertebral tenderness. Skin: Warm, dry with normal turgor. Normal color with no rashes, no lesions, and no evidence of cellulitis. MS/ Extremity: Pulses equal, no cyanosis. Neurovascular intact. Full, normal range of motion. Neuro: Awake and alert, GCS 15, oriented to person, place, time, and situation. Cranial nerves II-XII grossly intact. Motor strength 5/5 in all extremities. Sensory grossly intact. Psych: Awake, alert, with orientation to person, place and time. Behavior, mood, and affect are within normal limits Vital Signs: 03/21 06:09 BP 143 / 83; Pulse 84; Resp 17 S; Temp 97.6(T); Pulse Ox 99% on R/A; Weight 145.15 kg; ha1 Height 5 ft. 6 in. ; 06:09 Body Mass Index 51.65 (145.15 kg, 167.64 cm) ha1 Raul Coma Score: 06:24 Eye Response: spontaneous(4). Motor Response: obeys commands(6). Verbal Response: bm8 oriented(5). Total: 15. 03/22 04:29 Eye Response: spontaneous(4). Motor Response: obeys commands(6). Verbal Response: sp4 oriented(5). Total: 15. MDM: 03/21 06:17 Medical Screening Exam initiated sp4 03/22 04:30 Differential diagnosis: otitis media, otitis externa, acute otalgia, cerumen impaction, sp4 serotympanum. Data reviewed: vital signs, nurses notes. ED course: Patient was given IM Rocephin. Stable for discharge with p.o. cephalexin and Ciprodex otic drops. Administered Medications: 03/21 06:24 Drug: Rocephin (cefTRIAXone) IM 1 grams IM once Route: IM; Site: right deltoid; bm8 06:24 Follow up: Response: No adverse reaction; Medication administered at discharge. bm8 06:24 Drug: Acetaminophen PO 1000 mg PO once Route: PO; bm8 06:24 Follow up: Response: No adverse reaction; Medication administered at discharge. bm8 Disposition Summary: 03/21/24 06:17 Discharge Ordered Notes: Location: Home sp4 Problem: new sp4 Symptoms: have improved sp4 Condition: Stable sp4 Diagnosis - Other infective otitis externa, left ear sp4 Followup: sp4 - With: Private Physician - When: 7 - 10 days - Reason: Recheck today's complaints Discharge Instructions: - Discharge Summary Sheet sp4 - Otitis Externa, [id number] sp4 Forms: - Patient Portal Instructions sp4 - Work release form bm8 Prescriptions: - Cephalexin 500 mg Oral Capsule - take 1 capsule ORAL route every 12 hours for 10 days; 20 capsule; Refills: 0, sp4 Product Selection Permitted - Ciprodex 0.3-0.1 % Otic drops, suspension - instill 4 drops OTIC route every 12 hours for 7 days left ear only for 7 days; sp4 7 milliliter; Refills: 0, Product Selection Permitted Signatures: Giuliana Carrington RN RN ha1 Jason Rodas MD MD sp4 Deon Valera RN RN bm8
[2024-03-21] MEDS ORDERED: CEFTRIAXONE 1000 MG/VIAL ONE (06:20)
[2024-03-21] MEDS ORDERED: ACETAMINOPHEN 500 MG TAB ONE (06:21)
[2024-03-21] MEDS ORDERED: LIDOCAINE 1% MPF 5 ML VIAL ONE (06:21)
[2024-03-21 06:32] VITALS: BP 143/83; TEMP 97.6; O2SAT 99
== END 2024-03-21 06:27 | disposition home or self-care (01) ==
LOC: ER 06:04
DX: O99.891 Other specified diseases and conditions complicating pregnancy (principal); H60.392 Other infective otitis externa, left ear; Z3A.08 8 weeks gestation of pregnancy
CPT/HCPCS: J2003; J0696